=== PATIENT | female | born 1945 | race African-American/Black ===

== ENCOUNTER 2017-08-02 18:47 | Emergency (ER) | payer OTHER ==
[2017-08-02 18:59] VITALS: BP 129/73; PULSE 114; TEMP 99; BMI 22.1
--- NOTE | 2017-08-02 19:01 | PDOC ---
Rapid Medical Evaluation Chief Complaint: Eye Problem Time Seen by Provider: 08/02/17 18:58 Medical Evaluation: Allergies Allergy/AdvReac Type Severity Reaction Status Date / Time No Known Allergies Allergy Verified 08/02/17 18:54 08/02/17 18:58 Pt. presents to the Ed with sudden onset of eye bleeding R eye of the lateral aspect. No pain, but feels like something is in the eye Exam: PERRLA, appears to be a subconjuntival hemorrhage to the R lateral aspect of the eye. ambulatory in no acute distress. Orders: Nothing Pt. to proceed to FT for further evaluation
--- NOTE | 2017-08-02 22:20 | PDOC ---
History of Present Illness - General Chief Complaint: Eye Problem Stated Complaint: blood in eye Time Seen by Provider: 08/02/17 18:58 - History of Present Illness Initial Comments: 72-year-old female presents for evaluation of right eye redness 1 hour. She is not on any anticoagulation. She has a history of migraines. She does not have a headache or any other associated symptoms no visual changes 08/02/17 22:11 Past History - Past Medical History Allergies/Adverse Reactions: Allergies Allergy/AdvReac Type Severity Reaction Status Date / Time No Known Allergies Allergy Verified 08/02/17 18:54 Home Medications: Ambulatory Orders NK [No Known Home Medication] 08/02/17 COPD: No - Suicide/Smoking/Psychosocial Hx Smoking History: Never smoked Have you smoked in the past 12 months: No Information on smoking cessation initiated: No Hx Alcohol Use: No Drug/Substance Use Hx: No Substance Use Type: None Review of Systems - Review of Systems Comments:: GENERAL/CONSTITUTIONAL: No fever or chills. No weakness. No weight change. HEAD, EYES, EARS, NOSE AND THROAT: No change in vision. No ear pain or discharge. No sore throat. CARDIOVASCULAR: No chest pain or shortness of breath. RESPIRATORY: No cough, wheezing, or hemoptysis. GASTROINTESTINAL: No nausea, vomiting, diarrhea or constipation. No rectal bleeding. GENITOURINARY: No dysuria, frequency, or change in urination. MUSCULOSKELETAL: No joint or muscle swelling or pain. No neck or back pain. SKIN AND BREASTS: No rash or easy bruising. NEUROLOGIC: No headache, vertigo, loss of consciousness, or loss of sensation. PSYCHIATRIC: No depression or anxiety. ENDOCRINE: No increased thirst. No abnormal weight change. HEMATOLOGIC/LYMPHATIC: No anemia, easy bleeding, or history of blood clots. ALLERGIC/IMMUNOLOGIC: No hives or skin allergy. No latex allergy. 08/02/17 22:12 *Physical Exam - Vital Signs Last Vital Signs Temp Pulse Resp BP Pulse Ox 99.0 F 114 H 18 129/73 100 08/02/17 18:55 08/02/17 18:55 08/02/17 18:55 08/02/17 18:55 08/02/17 18:55 - Physical Exam Comments: Visual acuity was 20/30 bilaterally 20/25 right eye 20/25 left eye. There is a subconjunctival hemorrhage in the right eye external ocular muscles are intact. Pupils are equal and round 08/02/17 22:20 Moderate Sedation - Procedure Monitoring Vital Signs: Vital Signs Temp Pulse Resp BP Pulse Ox 99.0 F 114 H 18 129/73 100 08/02/17 18:55 08/02/17 18:55 08/02/17 18:55 08/02/17 18:55 08/02/17 18:55 *DC/Admit/Observation/Transfer Diagnosis at time of Disposition: Subconjunctival hemorrhage - Discharge Dispostion Disposition: HOME Condition at time of disposition: Stable Decision to Admit order: No - Referrals Referrals: George Perry MD [Primary Care Provider] - Cullen Singer MD [Staff Physician] - Félix Mata MD [Non Staff, Medical] - Maddi Reagan MD [Staff Physician] - Arsenio Vaughan MD [Non Staff, Medical] - Giovana Rollins [Staff Physician] - Sabino Stephen [Non Staff, Medical] - - Patient Instructions Printed Discharge Instructions: DI for Subconjunctival Hemorrhage Additional Instructions: His is a subconjunctival hemorrhage of your right eye. It should resolve on its own in the next few weeks. In the meantime he should follow-up with ophthalmology in the next day. Return to emergency room if your symptoms worsen , if you have visual changes, or pain. - Post Discharge Activity
== END 2017-08-02 22:31 | disposition home or self-care (01) ==
LOC: JERFT 18:47
PROC: 4A07X0Z Measurement of Visual Acuity, External Approach (ICD-10-PCS; principal; 2017-08-02)
DX: H11.31 Conjunctival hemorrhage, right eye (principal)
CPT/HCPCS: 99281-25